=== PATIENT | male | born 1980 | race Two or more races ===

== ENCOUNTER 2022-09-22 10:55 | Emergency (ER) | payer MEDICAID ==
[~2022-09-22] VITALS: Ht 170.2 cm; Wt 113.6 kg
[2022-09-22 14:52] VITALS: BP 145/103
[2022-09-22] MEDS: HYDROcodone-ACET 5/325MG TAB PO ONE (15:23)
[2022-09-22] MEDS ORDERED: HYDR-4902 PO (15:59)
[2022-09-22] MEDS ORDERED: IBUP800T27 PO (15:59)
== END 2022-09-22 16:11 | disposition home or self-care (01) ==
LOC: ER 10:55
DX: S80.01XA Contusion of right knee, initial encounter (principal); M25.461 Effusion, right knee; X58.XXXA Exposure to other specified factors, initial encounter; Y93.89 Activity, other specified; Y92.89 Other specified places as the place of occurrence of the external cause; Y99.8 Other external cause status
CPT/HCPCS: 73562; 93971